=== PATIENT | female | born 1945 | race Caucasian/White ===

== ENCOUNTER 2018-10-07 06:32 | Inpatient (IN) | payer MEDICARE ==
[2018-10-07 07:34] LABS: ADD MAN DIFF? NO
[2018-10-07 07:40] LABS: BASOPHILS % 0.6 % (0.0-2.0); EOSINOPHILS # 0.2 10^3/ul (0.0-0.5); EOSINOPHILS % 2.4 % (0.0-7.0); HEMATOCRIT 41.5 % (37.0-47.0); HEMOGLOBIN 13.7 g/dl (12.0-16.0); MEAN CORPUSCULAR HEMOGLOBIN 29.2 pg (29.0-33.0); MEAN CORPUSCULAR VOLUME 88.5 fl (82.0-101.0); MEAN PLATELET VOLUME 9.8 fl (7.4-10.4); MONOCYTE # 0.6 10^3/ul (0.3-0.9); MONOCYTES % 9.5 % (0.0-11.0); NEUTROPHIL # 3.7 10^3/ul (1.6-7.5); NEUTROPHILS % 56.2 % (39.0-77.0); PLATELET COUNT 251 10^3/UL (140-415); RED BLOOD COUNT 4.69 10^6/ul (4.20-5.40); RED CELL DISTRIBUTION WIDTH 13.4 % (11.5-14.5)
[2018-10-07 07:40] LABS: WHITE BLOOD COUNT 6.6 10^3/ul (4.8-10.8)
[2018-10-07] MEDS ORDERED: EPHEDrine SULFATE 50 MG/5 ML SYG (08:00)
[2018-10-07] MEDS ORDERED: METOCLOPRAMIDE 10 MG INJ (08:00)
[2018-10-07] MEDS ORDERED: morphine SULFATE/PF (10 MG/10 ML) INJ (08:00)
[2018-10-07] MEDS ORDERED: FAMOTIDINE 20 MG INJ (08:00)
[2018-10-07] MEDS ORDERED: HYDROmorphONE 1 MG/5 ML IV SYRINGE IV ×3 (08:00)
[2018-10-07] MEDS ORDERED: PROPOFOL 20 ML (08:00)
[2018-10-07] MEDS ORDERED: ONDANSETRON 4 MG INJ (08:00)
[2018-10-07] MEDS ORDERED: MIDAZOLAM 1 MG/ML 2 ML INJ (08:00)
[2018-10-07] MEDS ORDERED: ROPIVACAINE 0.5 % 30 ML VIAL (08:00)
[2018-10-07] MEDS ORDERED: CEFAZOLIN 1 GM INJ (08:00)
[2018-10-07] MEDS ORDERED: hydrALAzine 20 MG INJ IV (08:00)
[2018-10-07] MEDS ORDERED: LABETALOL HCL 20MG INJ IV (08:00)
[2018-10-07] MEDS ORDERED: DESFLURANE 15 MIN (08:00)
[2018-10-07] MEDS ORDERED: ONDANSETRON 4 MG INJ IV (08:00)
[2018-10-07 08:04] LABS: ALANINE AMINOTRANSFERASE 11 IU/L (13-69); ALBUMIN 4.6 g/dl (3.3-4.9); ALBUMIN/GLOBULIN RATIO 1.17; ALKALINE PHOSPHATASE 101 IU/L (42-121); ANION GAP 9 (5-13); ASPARTATE AMINO TRANSFERASE 24 IU/L (15-46); BILIRUBIN,INDIRECT 0.3 mg/dl (0-1.1); BILIRUBIN,TOTAL 0.3 mg/dl (0.2-1.3); BLOOD UREA NITROGEN 15 mg/dl (7-20); CARBON DIOXIDE 33 mmol/L (21-31); CHLORIDE 96 mmol/L (97-110); GLUCOSE 130 mg/dl (70-220); POTASSIUM 4.5 mmol/L (3.5-5.1); SODIUM 138 mmol/L (135-144); TOTAL PROTEIN 8.5 g/dl (6.1-8.1)
[2018-10-07] MEDS ORDERED: FENTAnyl 50 MCG/ML VIAL (08:04)
[2018-10-07] MEDS ORDERED: ROPIVACAINE 0.2% 20 ML VIAL (08:05)
[2018-10-07 08:06] LABS: INR 0.94; PROTIME 12.7 Sec (11.9-14.9)
[2018-10-07 08:07] LABS: PARTIAL THROMBOPLASTIN TIME 31.1 Sec (23.0-35.0)
[2018-10-07] MEDS: POLYMYXIN B 500000 UNIT INJ (09:29)
[2018-10-07] MEDS: BACITRACIN 50000 UNITS INJ (09:29)
[2018-10-07] MEDS: TRANEXAMIC ACID 1,000 MG in DEXTROSE 5% 100 ML IV (09:30)
[2018-10-07] MEDS ORDERED: NA PHOSPHATE/BIPHOS 133 ML ENEMA PR (11:30)
[2018-10-07] MEDS ORDERED: NACL 0.9% 3 ML SYG IV (11:30)
[2018-10-07] MEDS ORDERED: MAGNESIUM HYDROXIDE 30ML CUP PO (11:30)
[2018-10-07] MEDS ORDERED: BISACODYL 10 MG SUPP PR (11:30)
[2018-10-07] MEDS ORDERED: NALOXONE (0.4 MG/ML) INJ IV (11:30)
[2018-10-07] MEDS: DOCUSATE SODIUM 100 MG CAP PO (11:54)
[2018-10-07] MEDS: CEFAZOLIN 2 GM/50 ML (PMX) 50 ML IVPB ×2 (11:55→19:50)
[2018-10-07] MEDS: ONDANSETRON 4 MG INJ IV ×3 (12:03→23:58)
[2018-10-07] MEDS: ENOXAPARIN 40 MG/0.4 ML SYG SC ×2 (12:55→20:44)
[2018-10-07] MEDS: SOD CHLORIDE 0.9% 1,000 ML IV (12:57)
[2018-10-07] MEDS: HYDROmorphONE 1 MG/ML SYG IV (14:58)
[2018-10-07] MEDS: METOPROLOL 50 MG TAB PO (15:00)
[2018-10-07] MEDS: HYDROCHLOROTHIAZIDE 12.5 MG CAP PO (17:16)
[2018-10-07] MEDS: LOSARTAN 50 MG TAB PO (17:16)
[2018-10-07] MEDS ORDERED: ACETAMINOPHEN 500 MG TAB PO (20:30)
[2018-10-07] MEDS: ATORVASTATIN 20 MG TAB PO (20:43)
[2018-10-07] MEDS ORDERED: RANITIDINE 150 MG TAB PO (21:00)
[2018-10-08] MEDS: oxyCODONE 5 MG TAB PO ×4 (01:48→23:58)
[2018-10-08] MEDS: SOD CHLORIDE 0.9% 1,000 ML IV ×3 (01:49→23:59)
[2018-10-08] MEDS: CEFAZOLIN 2 GM/50 ML (PMX) 50 ML IVPB (03:33)
[2018-10-08] MEDS: HYDROmorphONE 1 MG/ML SYG IV ×5 (03:38→19:46)
[2018-10-08 05:04] LABS: ADD MAN DIFF? NO
[2018-10-08 05:15] LABS: BASOPHILS % 0.3 % (0.0-2.0); EOSINOPHILS % 0.3 % (0.0-7.0); HEMATOCRIT 31.4 % (37.0-47.0); HEMOGLOBIN 10.8 g/dl (12.0-16.0); LYMPHOCYTES # 1.7 10^3/ul (0.8-2.9); LYMPHOCYTES % 19.3 % (15.0-51.0); MEAN CORPUSCULAR HEMOGLOBIN 30.3 pg (29.0-33.0); MEAN CORPUSCULAR HGB CONC 34.4 g/dl (32.0-37.0); MEAN PLATELET VOLUME 10.7 fl (7.4-10.4); MONOCYTE # 1.4 10^3/ul (0.3-0.9); MONOCYTES % 15.1 % (0.0-11.0); NEUTROPHIL # 5.8 10^3/ul (1.6-7.5); NEUTROPHILS % 64.7 % (39.0-77.0); PLATELET COUNT 174 10^3/UL (140-415); RED BLOOD COUNT 3.57 10^6/ul (4.20-5.40); RED CELL DISTRIBUTION WIDTH 13.2 % (11.5-14.5)
[2018-10-08] MEDS: ONDANSETRON 4 MG INJ IV (05:30)
[2018-10-08] MEDS: DOCUSATE SODIUM 100 MG CAP PO ×2 (09:00→21:08)
[2018-10-08] MEDS ORDERED: NON-FORMULARY/PATIENT OWN MED (Losartan-Hydrochlorothiazide (Losartan-HCTZ) 1 TAB) PO (09:00)
[2018-10-08] MEDS: LOSARTAN 50 MG TAB PO (09:01)
[2018-10-08] MEDS: HYDROCHLOROTHIAZIDE 12.5 MG CAP PO (09:02)
[2018-10-08] MEDS: METOPROLOL 50 MG TAB PO (09:03)
[2018-10-08] MEDS: ENOXAPARIN 40 MG/0.4 ML SYG SC (09:06)
[2018-10-08] MEDS: ATORVASTATIN 20 MG TAB PO (21:08)
[2018-10-09] MEDS: oxyCODONE 5 MG TAB PO ×4 (04:36→21:26)
[2018-10-09 05:14] LABS: ADD MAN DIFF? NO
[2018-10-09] MEDS: PANTOPRAZOLE (EC) 40 MG TAB PO (05:28)
[2018-10-09 05:40] LABS: WHITE BLOOD COUNT 13.8 10^3/ul (4.8-10.8)
[2018-10-09 05:40] LABS: ABNORMAL IP MESSAGE 1; BASOPHILS % 0.2 % (0.0-2.0); EOSINOPHILS % 0.2 % (0.0-7.0); HEMATOCRIT 27.9 % (37.0-47.0); HEMOGLOBIN 9.5 g/dl (12.0-16.0); LYMPHOCYTES # 1.6 10^3/ul (0.8-2.9); LYMPHOCYTES % 11.2 % (15.0-51.0); MEAN CORPUSCULAR HGB CONC 34.1 g/dl (32.0-37.0); MEAN PLATELET VOLUME 10.2 fl (7.4-10.4); MONOCYTE # 1.6 10^3/ul (0.3-0.9); MONOCYTES % 11.3 % (0.0-11.0); NEUTROPHIL # 10.6 10^3/ul (1.6-7.5); NEUTROPHILS % 76.7 % (39.0-77.0); PLATELET COUNT 171 10^3/UL (140-415); RED BLOOD COUNT 3.17 10^6/ul (4.20-5.40); RED CELL DISTRIBUTION WIDTH 12.6 % (11.5-14.5)
[2018-10-09 05:58] LABS: POSITIVE DIFF @See below
[2018-10-09 06:13] LABS: ANION GAP 8 (5-13); BLOOD UREA NITROGEN 11 mg/dl (7-20); CALCIUM 8.2 mg/dl (8.4-10.2); CARBON DIOXIDE 32 mmol/L (21-31); CHLORIDE 85 mmol/L (97-110); CREATININE 0.77 mg/dl (0.44-1.00); GLUCOSE 124 mg/dl (70-220); POTASSIUM 4.2 mmol/L (3.5-5.1); SODIUM 125 mmol/L (135-144)
[2018-10-09] MEDS: ENOXAPARIN 40 MG/0.4 ML SYG SC ×2 (09:00→09:06)
[2018-10-09] MEDS: DOCUSATE SODIUM 100 MG CAP PO ×2 (09:04→21:27)
[2018-10-09] MEDS: LOSARTAN 50 MG TAB PO (09:04)
[2018-10-09] MEDS: HYDROCHLOROTHIAZIDE 12.5 MG CAP PO (09:04)
[2018-10-09] MEDS: METOPROLOL 50 MG TAB PO (09:05)
[2018-10-09 12:22] LABS: ADD UMIC YES; UR ASCORBIC ACID NEGATIVE (NEGATIVE); UR BILIRUBIN (Dip) NEGATIVE (NEGATIVE); UR BLOOD (Dip) 3+ mg/dL (NEGATIVE); UR CLARITY CLEAR (CLEAR); UR COLOR YELLOW (YELLOW); UR GLUCOSE (Dip) NEGATIVE (NEGATIVE); UR KETONES (Dip) NEGATIVE (NEGATIVE); UR LEUKOCYTE ESTERASE (Dip) NEGATIVE Leu/ul (NEGATIVE); UR NITRITE (Dip) NEGATIVE (NEGATIVE); UR RBC > 182 /HPF (0-5); UR TOTAL PROTEIN (Dip) 1+ mg/dl (NEGATIVE); UR UROBILINOGEN (Dip) NEGATIVE (NEGATIVE); UR WBC 3 /HPF (0-5)
[2018-10-09 15:32] LABS: ANION GAP 11 (5-13); BLOOD UREA NITROGEN 12 mg/dl (7-20); CALCIUM 8.7 mg/dl (8.4-10.2); CARBON DIOXIDE 30 mmol/L (21-31); CHLORIDE 84 mmol/L (97-110); CREATININE 0.84 mg/dl (0.44-1.00); GLUCOSE 135 mg/dl (70-220); POTASSIUM 4.2 mmol/L (3.5-5.1); SODIUM 125 mmol/L (135-144)
[2018-10-09] MEDS: SOD CHLORIDE 0.9% 1,000 ML IV (21:26)
[2018-10-09] MEDS: ATORVASTATIN 20 MG TAB PO (21:27)
[2018-10-10] MEDS: SOD CHLORIDE 0.9% 1,000 ML IV ×2 (02:20→15:38)
[2018-10-10 05:10] LABS: ADD MAN DIFF? NO
[2018-10-10 05:16] LABS: WHITE BLOOD COUNT 10.8 10^3/ul (4.8-10.8)
[2018-10-10 05:16] LABS: BASOPHILS % 0.3 % (0.0-2.0); EOSINOPHILS # 0.1 10^3/ul (0.0-0.5); EOSINOPHILS % 0.6 % (0.0-7.0); HEMATOCRIT 25.3 % (37.0-47.0); HEMOGLOBIN 8.6 g/dl (12.0-16.0); LYMPHOCYTES # 1.4 10^3/ul (0.8-2.9); LYMPHOCYTES % 12.7 % (15.0-51.0); MEAN CORPUSCULAR HEMOGLOBIN 29.4 pg (29.0-33.0); MEAN CORPUSCULAR VOLUME 86.3 fl (82.0-101.0); MONOCYTE # 1.1 10^3/ul (0.3-0.9); NEUTROPHIL # 8.2 10^3/ul (1.6-7.5); NEUTROPHILS % 75.8 % (39.0-77.0); PLATELET COUNT 163 10^3/UL (140-415); RED BLOOD COUNT 2.93 10^6/ul (4.20-5.40); RED CELL DISTRIBUTION WIDTH 12.6 % (11.5-14.5)
[2018-10-10 05:39] LABS: ANION GAP 9 (5-13); BLOOD UREA NITROGEN 10 mg/dl (7-20); CALCIUM 8.8 mg/dl (8.4-10.2); CARBON DIOXIDE 32 mmol/L (21-31); CHLORIDE 88 mmol/L (97-110); CREATININE 0.69 mg/dl (0.44-1.00); GLUCOSE 127 mg/dl (70-220); POTASSIUM 3.4 mmol/L (3.5-5.1); SODIUM 129 mmol/L (135-144)
[2018-10-10] MEDS: PANTOPRAZOLE (EC) 40 MG TAB PO (05:43)
[2018-10-10] MEDS: DOCUSATE SODIUM 100 MG CAP PO ×2 (08:13→21:06)
[2018-10-10] MEDS: LOSARTAN 50 MG TAB PO (08:14)
[2018-10-10] MEDS: METOPROLOL 50 MG TAB PO (08:14)
[2018-10-10] MEDS: oxyCODONE 5 MG TAB PO ×3 (08:15→21:06)
[2018-10-10] MEDS: ATORVASTATIN 20 MG TAB PO (21:06)
[2018-10-10] MEDS: POTASSIUM CHLORIDE 20 MEQ POWDER FOR ORAL SOLN PO (22:23)
[2018-10-11] MEDS: oxyCODONE 5 MG TAB PO ×4 (02:46→23:23)
[2018-10-11] MEDS: SOD CHLORIDE 0.9% 1,000 ML IV ×2 (02:49→15:23)
[2018-10-11] MEDS: PANTOPRAZOLE (EC) 40 MG TAB PO (05:14)
[2018-10-11 05:15] LABS: ADD MAN DIFF? NO
[2018-10-11 05:23] LABS: WHITE BLOOD COUNT 9.3 10^3/ul (4.8-10.8)
[2018-10-11 05:23] LABS: BASOPHILS % 0.2 % (0.0-2.0); EOSINOPHILS # 0.2 10^3/ul (0.0-0.5); EOSINOPHILS % 2.2 % (0.0-7.0); HEMATOCRIT 23.6 % (37.0-47.0); LYMPHOCYTES # 1.1 10^3/ul (0.8-2.9); LYMPHOCYTES % 11.6 % (15.0-51.0); MEAN CORPUSCULAR HGB CONC 33.9 g/dl (32.0-37.0); MEAN CORPUSCULAR VOLUME 88.4 fl (82.0-101.0); MEAN PLATELET VOLUME 9.6 fl (7.4-10.4); MONOCYTE # 1.2 10^3/ul (0.3-0.9); MONOCYTES % 12.5 % (0.0-11.0); NEUTROPHIL # 6.8 10^3/ul (1.6-7.5); NEUTROPHILS % 73.1 % (39.0-77.0); PLATELET COUNT 192 10^3/UL (140-415); RED BLOOD COUNT 2.67 10^6/ul (4.20-5.40); RED CELL DISTRIBUTION WIDTH 12.8 % (11.5-14.5)
[2018-10-11 06:00] LABS: ANION GAP 7 (5-13); BLOOD UREA NITROGEN 9 mg/dl (7-20); CALCIUM 8.2 mg/dl (8.4-10.2); CARBON DIOXIDE 31 mmol/L (21-31); CHLORIDE 96 mmol/L (97-110); GLUCOSE 142 mg/dl (70-220); POTASSIUM 3.5 mmol/L (3.5-5.1); SODIUM 134 mmol/L (135-144)
[2018-10-11] MEDS: LOSARTAN 50 MG TAB PO (08:18)
[2018-10-11] MEDS: METOPROLOL 50 MG TAB PO (08:20)
[2018-10-11] MEDS: SENNA/DOCUSATE NA (8.6MG/50MG) TAB PO ×2 (09:24→21:00)
[2018-10-11] MEDS: ATORVASTATIN 20 MG TAB PO (20:49)
[2018-10-12 05:03] LABS: ADD MAN DIFF? NO; BASOPHILS % 0.5 % (0.0-2.0); EOSINOPHILS # 0.3 10^3/ul (0.0-0.5); EOSINOPHILS % 3.4 % (0.0-7.0); HEMOGLOBIN 7.9 g/dl (12.0-16.0); LYMPHOCYTES # 1.4 10^3/ul (0.8-2.9); LYMPHOCYTES % 17.6 % (15.0-51.0); MEAN CORPUSCULAR HEMOGLOBIN 30.3 pg (29.0-33.0); MEAN CORPUSCULAR HGB CONC 34.3 g/dl (32.0-37.0); MEAN CORPUSCULAR VOLUME 88.1 fl (82.0-101.0); MEAN PLATELET VOLUME 9.1 fl (7.4-10.4); MONOCYTE # 1.1 10^3/ul (0.3-0.9); MONOCYTES % 13.3 % (0.0-11.0); NEUTROPHIL # 5.2 10^3/ul (1.6-7.5); NEUTROPHILS % 64.7 % (39.0-77.0); PLATELET COUNT 237 10^3/UL (140-415); RED BLOOD COUNT 2.61 10^6/ul (4.20-5.40); RED CELL DISTRIBUTION WIDTH 13.2 % (11.5-14.5)
[2018-10-12] MEDS: SOD CHLORIDE 0.9% 1,000 ML IV (05:11)
[2018-10-12] MEDS: PANTOPRAZOLE (EC) 40 MG TAB PO (05:15)
[2018-10-12 05:29] LABS: ANION GAP 11 (5-13); BLOOD UREA NITROGEN 11 mg/dl (7-20); CALCIUM 8.6 mg/dl (8.4-10.2); CARBON DIOXIDE 31 mmol/L (21-31); CHLORIDE 95 mmol/L (97-110); CREATININE 0.65 mg/dl (0.44-1.00); GLUCOSE 134 mg/dl (70-220); POTASSIUM 3.4 mmol/L (3.5-5.1); SODIUM 137 mmol/L (135-144)
[2018-10-12] MEDS: SENNA/DOCUSATE NA (8.6MG/50MG) TAB PO (08:28)
[2018-10-12] MEDS: LOSARTAN 50 MG TAB PO (08:29)
[2018-10-12] MEDS: METOPROLOL 50 MG TAB PO (08:29)
[2018-10-12] MEDS: oxyCODONE 5 MG TAB PO ×2 (08:30→17:02)
[2018-10-12] MEDS ORDERED: POLYMYXIN B 500000 UNIT INJ (11:21)
[2018-10-12] MEDS ORDERED: POLYMYXIN/BACITRACIN 1L IRRIG (11:21)
[2018-10-12] MEDS ORDERED: BACITRACIN 50000 UNITS INJ (11:25)
[2018-10-12] MEDS: ATORVASTATIN 20 MG TAB PO (20:28)
[2018-10-13] MEDS: oxyCODONE 5 MG TAB PO ×5 (00:35→18:26)
[2018-10-13 05:03] LABS: ADD MAN DIFF? NO
[2018-10-13 05:04] LABS: WHITE BLOOD COUNT 7.8 10^3/ul (4.8-10.8)
[2018-10-13 05:04] LABS: BASOPHILS % 0.4 % (0.0-2.0); EOSINOPHILS # 0.3 10^3/ul (0.0-0.5); EOSINOPHILS % 3.5 % (0.0-7.0); HEMATOCRIT 24.9 % (37.0-47.0); HEMOGLOBIN 8.3 g/dl (12.0-16.0); LYMPHOCYTES # 1.7 10^3/ul (0.8-2.9); LYMPHOCYTES % 21.4 % (15.0-51.0); MEAN CORPUSCULAR HEMOGLOBIN 29.4 pg (29.0-33.0); MEAN CORPUSCULAR HGB CONC 33.3 g/dl (32.0-37.0); MEAN CORPUSCULAR VOLUME 88.3 fl (82.0-101.0); MONOCYTES % 12.2 % (0.0-11.0); NEUTROPHIL # 4.8 10^3/ul (1.6-7.5); NEUTROPHILS % 61.6 % (39.0-77.0); PLATELET COUNT 300 10^3/UL (140-415); RED BLOOD COUNT 2.82 10^6/ul (4.20-5.40); RED CELL DISTRIBUTION WIDTH 13.4 % (11.5-14.5)
[2018-10-13 05:28] LABS: ANION GAP 9 (5-13); BLOOD UREA NITROGEN 9 mg/dl (7-20); CALCIUM 8.9 mg/dl (8.4-10.2); CARBON DIOXIDE 33 mmol/L (21-31); CHLORIDE 95 mmol/L (97-110); CREATININE 0.57 mg/dl (0.44-1.00); GLUCOSE 129 mg/dl (70-220); POTASSIUM 3.3 mmol/L (3.5-5.1); SODIUM 137 mmol/L (135-144)
[2018-10-13] MEDS: PANTOPRAZOLE (EC) 40 MG TAB PO (06:11)
[2018-10-13] MEDS: METOPROLOL 50 MG TAB PO (08:53)
[2018-10-13] MEDS: LOSARTAN 50 MG TAB PO (08:53)
[2018-10-13] MEDS: ASPIRIN (EC) 325 MG TAB PO (08:53)
[2018-10-13] MEDS: POTASSIUM CHLORIDE 20 MEQ POWDER FOR ORAL SOLN PO (15:33)
== END 2018-10-13 19:15 | DRG 470 ==
LOC: REC 06:32 → MS1 12:41
PROC: 0SRC0J9 Replacement of Right Knee Joint with Synthetic Substitute, Cemented, Open Approach (ICD-10-PCS; principal; 2018-10-07 08:00)
DX: M17.11 Unilateral primary osteoarthritis, right knee (principal); E87.1 Hypo-osmolality and hyponatremia; D62 Acute posthemorrhagic anemia; I10 Essential (primary) hypertension; E78.5 Hyperlipidemia, unspecified; D72.829 Elevated white blood cell count, unspecified; R50.9 Fever, unspecified
CPT/HCPCS: 73560; 80048; 80053; 81001; 85025; 85610; 85730; 86850; 86900; 86901; 86920; 87086; 88304; 88311; 93971; 97110; 97116; 97161; 97530; 99217